=== PATIENT | male | born 1985 | race Caucasian/White ===

== ENCOUNTER 2018-02-18 07:08 | Day surgery (SDC) | payer SELFPAY ==
[2018-02-18] MEDS ORDERED: Sodium Chloride 0.9% 1,000 ML IV ONE (07:35)
[2018-02-18] MEDS ORDERED: Ketorolac 30 MG/ML SDV IVPUSH ONE (07:35)
--- NOTE | 2018-02-18 07:52 | EDM.PDOC ---
ED HPI GENERAL MEDICAL PROBLEM - General Chief Complaint: Abdominal Pain Stated Complaint: PAIN ON LEFT SIDE Time Seen by Provider: 02/18/18 07:47 - History of Present Illness INITIAL COMMENTS - FREE TEXT/NARRATIVE: HISTORY AND PHYSICAL: History of present illness: Patient 32-year-old white male presented concern of right lower quadrant abdominal pain 2 days this been worse over the last 24 hours she's had nausea with no vomiting denies fever chills trauma urinary symptoms or other concern Review of systems: As per history of present illness and below otherwise all systems reviewed and negative. Past medical history: As per history of present illness and as reviewed below otherwise noncontributory. Surgical history: As per history of present illness and as reviewed below otherwise noncontributory. Social history: No reported history of drug or alcohol abuse. Family history: As per history of present illness and as reviewed below otherwise noncontributory. Physical exam: HEENT: Atraumatic, normocephalic, pupils reactive, negative for conjunctival pallor or scleral icterus, mucous membranes moist, throat clear, neck supple, nontender, trachea midline. Lungs: Clear to auscultation, breath sounds equal bilaterally, chest nontender. Heart: S1S2, regular, negative for clicks, rubs, or JVD. Abdomen: Soft, nondistended, right lower quadrant tenderness to deep palpation with guarding no rebound. Negative for masses or hepatosplenomegaly. Negative for costovertebral tenderness. Pelvis: Stable nontender. Genitourinary: Deferred. Rectal: Deferred. Extremities: Atraumatic, negative for cords or calf pain. Neurovascular unremarkable. Neuro: Awake, alert, oriented. Cranial nerves II through XII unremarkable. Cerebellum unremarkable. Motor and sensory unremarkable throughout. Exam nonfocal. Diagnostics: CBC CMP UA CT abdomen and pelvis Therapeutics: Saline 1 L bolus Toradol 30 mg IV Impression: #1 acute right lower abdominal pain Definitive disposition and diagnosis as appropriate pending reevaluation and review of above. Right Lower Abdomen Pain Score (Numeric/FACES): 8 - Related Data Allergies Allergy/AdvReac Type Severity Reaction Status Date / Time No Known Allergies Allergy Verified 02/18/18 07:14 Home Meds: Home Meds . [No Known Home Meds] 02/18/18 [History] Past Medical History - Past Health History Medical/Surgical History: Denies Medical/Surgical History - Infectious Disease History Infectious Disease History: Reports: None Social & Family History - Family History Family Medical History: Noncontributory - Tobacco Use Smoking Status *Q: Current Every Day Smoker Years of Tobacco use: 10 Packs/Tins Daily: 0.2 - Caffeine Use Caffeine Use: Reports: Energy Drinks - Alcohol Use Days Per Week of Alcohol Use: 1 Number of Drinks Per Day: 2 Total Drinks Per Week: 2 - Recreational Drug Use Recreational Drug Use: No ED ROS GENERAL - Review of Systems Review Of Systems: ROS reveals no pertinent complaints other than HPI. ED EXAM, GENERAL - Physical Exam Exam: See Below Course - Vital Signs Last Recorded V/S: Last Vital Signs Temp 36.7 C 02/18/18 07:14 Pulse 98 02/18/18 08:43 Resp 16 02/18/18 08:43 BP 149/96 H 02/18/18 08:43 Pulse Ox 97 02/18/18 08:43 - Orders/Labs/Meds Orders: Active Orders 24 hr Category Date Time Status Abdomen Pelvis wo Cont [CT] Stat Exams 02/18/18 07:30 Taken CULTURE URINE [RM] Stat Lab 02/18/18 07:30 Received UA W/MICROSCOPIC [URIN] Stat Lab 02/18/18 07:30 Ordered Labs: Laboratory Tests 02/18/18 02/18/18 02/18/18 Range/Units 07:30 07:50 07:50 WBC 10.04 (4.0-11.0) K/uL RBC 5.53 (4.50-5.90) M/uL Hgb 17.1 H (13.0-17.0) g/dL Hct 49.4 (38.0-50.0) % MCV 89.3 (80.0-98.0) fL MCH 30.9 (27.0-32.0) pg MCHC 34.6 (31.0-37.0) g/dL RDW Std Deviation 42.2 (28.0-62.0) fl RDW Coeff of Winifred 13 (11.0-15.0) % Plt Count 192 (150-400) K/uL MPV 11.00 (7.40-12.00) fL Neut % (Auto) 67.0 (48.0-80.0) % Lymph % (Auto) 24.4 (16.0-40.0) % [place] % (Auto) 6.8 (0.0-15.0) % Eos % (Auto) 1.4 (0.0-7.0) % Baso % (Auto) 0.4 (0.0-1.5) % Neut # (Auto) 6.7 H (1.4-5.7) K/uL Lymph # (Auto) 2.5 H (0.6-2.4) K/uL [place] # (Auto) 0.7 (0.0-0.8) K/uL Eos # (Auto) 0.1 (0.0-0.7) K/uL Baso # (Auto) 0.0 (0.0-0.1) K/uL Nucleated RBC % 0.0 /100WBC Nucleated RBCs # 0 K/uL Sodium 138 (136-148) mmol/L Potassium 4.3 (3.5-5.1) mmol/L Chloride 107 (98-107) mmol/L Carbon Dioxide 25.9 (21.0-32.0) mmol/L BUN 10 (7.0-18.0) mg/dL Creatinine 1.0 (0.8-1.3) mg/dL Est Cr Clr Drug Dosing 97.31 mL/min Estimated GFR (MDRD) > 60.0 ml/min Glucose 111 H (74-106) mg/dL Calcium 9.0 (8.5-10.1) mg/dL Total Bilirubin 0.5 (0.2-1.0) mg/dL AST 24 (15-37) IU/L ALT 53 (14-63) IU/L Alkaline Phosphatase 61 (46-116) U/L Total Protein 7.9 (6.4-8.2) g/dL Albumin 3.7 (3.4-5.0) g/dL Globulin 4.2 H (2.0-3.5) g/dL Albumin/Globulin Ratio 0.9 L (1.3-2.8) Urine Color YELLOW Urine Appearance CLEAR Urine pH 6.0 (5.0-8.0) Ur Specific [place] 1.025 (1.001-1.035) Urine Protein NEGATIVE (NEGATIVE) mg/dL Urine Glucose (UA) NEGATIVE (NEGATIVE) mg/dL Urine Ketones NEGATIVE (NEGATIVE) mg/dL Urine Occult Blood NEGATIVE (NEGATIVE) Urine Nitrite NEGATIVE (NEGATIVE) Urine Bilirubin NEGATIVE (NEGATIVE) Urine Urobilinogen 0.2 (<2.0) EU/dL Ur Leukocyte Esterase NEGATIVE (NEGATIVE) Urine RBC 0-1 (0-2/HPF) Urine WBC 0-1 (0-5/HPF) Ur Epithelial Cells RARE (NONE-FEW) Urine Bacteria RARE (NEGATIVE) Urine Mucus LIGHT (NONE-MOD) Meds: Medications Discontinued Medications Generic Name Dose Route Start Last Admin Trade Name Abhi PRN Reason Stop Dose Admin Sodium Chloride 1,000 mls @ 999 mls/hr 02/18/18 07:35 02/18/18 07:53 Normal Saline IV 02/18/18 08:35 999 mls/hr .Bolus ONE Administration Ketorolac Tromethamine 30 mg 02/18/18 07:35 02/18/18 07:53 Toradol IVPUSH 02/18/18 07:36 30 mg ONETIME ONE Administration Departure - Departure Time of Disposition: 09:21 Disposition: Refer to Observation Condition: Good Clinical Impression: Abdominal pain, Appendicitis - Discharge Information Referrals: PCP,None [Primary Care Provider] - Forms: ED Department Discharge - My Orders Last 24 Hours: My Active Orders 02/18/18 07:30 Abdomen Pelvis wo Cont [CT] Stat CULTURE URINE [RM] Stat UA W/MICROSCOPIC [URIN] Stat - Assessment/Plan Last 24 Hours: My Active Orders 02/18/18 07:30 Abdomen Pelvis wo Cont [CT] Stat CULTURE URINE [RM] Stat UA W/MICROSCOPIC [URIN] Stat
[2018-02-18 08:24] LABS: CHLORIDE,CL 107 mmol/L (98-107); SODIUM,NA 138 mmol/L (136-148)
[2018-02-18] MEDS ORDERED: cefOXitin 2 GM in Premix Bag 1 BAG IV ONE (09:36)
--- NOTE | 2018-02-18 09:44 | PCM.SN ---
- Free Text/Narrative Note: abd pain, ct > acute appendicitis, to surgery; rb dw pt re bleeding, infection, damage to nearby organ, abd abscess, postop course; [id number]
[2018-02-18] MEDS ORDERED: Lactated Ringers 1,000 ML IV SCH (09:45)
[2018-02-18] MEDS ORDERED: Bupivacaine 25%/EPINEPHrine/PF 30 ML ONE (10:06)
[2018-02-18] MEDS ORDERED: fentaNYL 250 MCG/5 ML SDV ONE (10:22)
[2018-02-18] MEDS ORDERED: Propofol 200 MG/20 ML SDV ONE (10:22)
[2018-02-18] MEDS ORDERED: Midazolam 1 MG/ML 2 ML SDV ONE (10:22)
[2018-02-18] MEDS ORDERED: Rocuronium 10 MG/ML 10 ML Syringe ONE (10:23)
[2018-02-18] MEDS ORDERED: Succinylcholine 200 MG/10 ML MDV ONE (10:23)
[2018-02-18] MEDS ORDERED: Ondansetron 4 MG/2 ML SDV ONE (10:24)
[2018-02-18] MEDS ORDERED: Neostigmine Methylsulfate 1 MG/ML 5 ML Syringe ONE (10:24)
[2018-02-18] MEDS ORDERED: Glycopyrrolate 0.2 MG/ML SDV ONE (10:24)
[2018-02-18] MEDS ORDERED: Dexamethasone 4 MG/ML 5 ML MDV ONE (10:24)
--- NOTE | 2018-02-18 11:04 | PCM.PREANE ---
Preanesthetic Assessment - Anesthesia/Transfusion/Family Hx Anesthesia History: Prior Anesthesia Without Reaction (Jew[place] teeth) Family History of Anesthesia Reaction: No Transfusion History: No Prior Transfusion(s) - Review of Systems General: No Symptoms Pulmonary: No Symptoms Cardiovascular: No Symptoms Gastrointestinal: No Symptoms Neurological: No Symptoms Other: Reports: None (Denies any medical problems) - Physical Assessment O2 Sat by Pulse Oximetry: 97 Respiratory Rate: 16 Vital Signs: Last Vital Signs Temp 36.7 C 02/18/18 07:14 Pulse 98 02/18/18 08:43 Resp 16 02/18/18 08:43 BP 149/96 H 02/18/18 08:43 Pulse Ox 97 02/18/18 08:43 Height: 1.7 m Weight: 99.79 kg ASA Class: 2E Mental Status: Alert & Oriented x3 Airway Class: Mallampati = 2 (opens very wide) Dentition: Reports: Normal Dentition Thyro-Mental Finger Breadths: 3 Mouth Opening Finger Breadths: 3 ROM/Head Extension: Full Lungs: Clear to Auscultation Cardiovascular: Regular Rate - Lab Values: Laboratory Last Values WBC 10.04 K/uL (4.0-11.0) 02/18/18 07:50 RBC 5.53 M/uL (4.50-5.90) 02/18/18 07:50 Hgb 17.1 g/dL (13.0-17.0) H 02/18/18 07:50 Hct 49.4 % (38.0-50.0) 02/18/18 07:50 MCV 89.3 fL (80.0-98.0) 02/18/18 07:50 MCH 30.9 pg (27.0-32.0) 02/18/18 07:50 MCHC 34.6 g/dL (31.0-37.0) 02/18/18 07:50 RDW Std Deviation 42.2 fl (28.0-62.0) 02/18/18 07:50 RDW Coeff of Winifred 13 % (11.0-15.0) 02/18/18 07:50 Plt Count 192 K/uL (150-400) 02/18/18 07:50 MPV 11.00 fL (7.40-12.00) 02/18/18 07:50 Neut % (Auto) 67.0 % (48.0-80.0) 02/18/18 07:50 Lymph % (Auto) 24.4 % (16.0-40.0) 02/18/18 07:50 [place] % (Auto) 6.8 % (0.0-15.0) 02/18/18 07:50 Eos % (Auto) 1.4 % (0.0-7.0) 02/18/18 07:50 Baso % (Auto) 0.4 % (0.0-1.5) 02/18/18 07:50 Neut # (Auto) 6.7 K/uL (1.4-5.7) H 02/18/18 07:50 Lymph # (Auto) 2.5 K/uL (0.6-2.4) H 02/18/18 07:50 [place] # (Auto) 0.7 K/uL (0.0-0.8) 02/18/18 07:50 Eos # (Auto) 0.1 K/uL (0.0-0.7) 02/18/18 07:50 Baso # (Auto) 0.0 K/uL (0.0-0.1) 02/18/18 07:50 Nucleated RBC % 0.0 /100WBC 02/18/18 07:50 Nucleated RBCs # 0 K/uL 02/18/18 07:50 Sodium 138 mmol/L (136-148) 02/18/18 07:50 Potassium 4.3 mmol/L (3.5-5.1) 02/18/18 07:50 Chloride 107 mmol/L (98-107) 02/18/18 07:50 Carbon Dioxide 25.9 mmol/L (21.0-32.0) 02/18/18 07:50 BUN 10 mg/dL (7.0-18.0) 02/18/18 07:50 Creatinine 1.0 mg/dL (0.8-1.3) 02/18/18 07:50 Est Cr Clr Drug Dosing 97.31 mL/min 02/18/18 07:50 Estimated GFR (MDRD) > 60.0 ml/min 02/18/18 07:50 Glucose 111 mg/dL (74-106) H 02/18/18 07:50 Calcium 9.0 mg/dL (8.5-10.1) 02/18/18 07:50 Total Bilirubin 0.5 mg/dL (0.2-1.0) 02/18/18 07:50 AST 24 IU/L (15-37) 02/18/18 07:50 ALT 53 IU/L (14-63) 02/18/18 07:50 Alkaline Phosphatase 61 U/L (46-116) 02/18/18 07:50 Total Protein 7.9 g/dL (6.4-8.2) 02/18/18 07:50 Albumin 3.7 g/dL (3.4-5.0) 02/18/18 07:50 Globulin 4.2 g/dL (2.0-3.5) H 02/18/18 07:50 Albumin/Globulin Ratio 0.9 (1.3-2.8) L 02/18/18 07:50 Urine Color YELLOW 02/18/18 07:30 Urine Appearance CLEAR 02/18/18 07:30 Urine pH 6.0 (5.0-8.0) 02/18/18 07:30 Ur Specific [place] 1.025 (1.001-1.035) 02/18/18 07:30 Urine Protein NEGATIVE mg/dL (NEGATIVE) 02/18/18 07:30 Urine Glucose (UA) NEGATIVE mg/dL (NEGATIVE) 02/18/18 07:30 Urine Ketones NEGATIVE mg/dL (NEGATIVE) 02/18/18 07:30 Urine Occult Blood NEGATIVE (NEGATIVE) 02/18/18 07:30 Urine Nitrite NEGATIVE (NEGATIVE) 02/18/18 07:30 Urine Bilirubin NEGATIVE (NEGATIVE) 02/18/18 07:30 Urine Urobilinogen 0.2 EU/dL (<2.0) 02/18/18 07:30 Ur Leukocyte Esterase NEGATIVE (NEGATIVE) 02/18/18 07:30 Urine RBC 0-1 (0-2/HPF) 02/18/18 07:30 Urine WBC 0-1 (0-5/HPF) 02/18/18 07:30 Ur Epithelial Cells RARE (NONE-FEW) 02/18/18 07:30 Urine Bacteria RARE (NEGATIVE) 02/18/18 07:30 Urine Mucus LIGHT (NONE-MOD) 02/18/18 07:30 - Allergies Allergies/Adverse Reactions: Allergies Allergy/AdvReac Type Severity Reaction Status Date / Time No Known Allergies Allergy Verified 02/18/18 07:14 - Acknowledgements Anesthesia Type Planned: General Anesthesia (RSI) Pt an Appropriate Candidate for the Planned Anesthesia: Yes Alternatives and Risks of Anesthesia Discussed w Pt/Guardian: Yes Pt/Guardian Understands and Agrees with Anesthesia Plan: Yes PreAnesthesia Questionnaire - Past Health History Medical/Surgical History: Denies Medical/Surgical History - Infectious Disease History Infectious Disease History: Reports: None - SUBSTANCE USE Smoking Status *Q: Current Every Day Smoker Tobacco Use Within Last Twelve Months: Cigarettes Days Per Week of Alcohol Use: 1 Number of Drinks Per Day: 2 Total Drinks Per Week: 2 Recreational Drug Use History: No - HOME MEDS Home Medications: Home Meds . [No Known Home Meds] 02/18/18 [History] - CURRENT (IN HOUSE) MEDS Current Meds: Current Medications Lactated Ringer's (Ringers, Lactated) 1,000 mls @ 150 mls/hr IV ASDIRECTED [facility] Last Admin: 02/18/18 09:50 Dose: 150 mls/hr Discontinued Medications Dexamethasone (Dexamethasone) Confirm Administered Dose 20 mg .ROUTE .STK-MED ONE Stop: 02/18/18 10:25 Fentanyl (Sublimaze) Confirm Administered Dose 250 mcg .ROUTE .STK-MED ONE Stop: 02/18/18 10:23 Glycopyrrolate (Robinul) Confirm Administered Dose 0.4 mg .ROUTE .STK-MED ONE Stop: 02/18/18 10:25 Sodium Chloride (Normal Saline) 1,000 mls @ 999 mls/hr IV .Bolus ONE Stop: 02/18/18 08:35 Last Admin: 02/18/18 07:53 Dose: 999 mls/hr Cefoxitin Sodium 2 gm/ Premix 50 mls @ 100 mls/hr IV ONETIME ONE Stop: 02/18/18 10:05 Last Admin: 02/18/18 09:51 Dose: 100 mls/hr Bupivacaine HCl/Epinephrine Bitart (Sensorc Mpf 0.25%-Epi 1:[id number]) Confirm Administered Dose 30 mls @ as directed .ROUTE .STK-MED ONE Stop: 02/18/18 10:07 Lidocaine HCl (Xylocaine-Mpf 1%) Confirm Administered Dose 5 mls @ as directed .ROUTE .STK-MED ONE Stop: 02/18/18 10:24 Ketorolac Tromethamine (Toradol) 30 mg IVPUSH ONETIME ONE Stop: 02/18/18 07:36 Last Admin: 02/18/18 07:53 Dose: 30 mg Midazolam HCl (Versed 1 Mg/Ml) Confirm Administered Dose 2 mg .ROUTE .ST-MED ONE Stop: 02/18/18 10:23 Neostigmine Methylsulfate (Neostigmine) Confirm Administered Dose 5 mg .ROUTE .ST-MED ONE Stop: 02/18/18 10:25 Ondansetron HCl (Zofran) Confirm Administered Dose 4 mg .ROUTE .[facility]-MED ONE Stop: 02/18/18 10:25 Propofol (Diprivan 20 Ml) Confirm Administered Dose 200 mg .ROUTE .STK-MED ONE Stop: 02/18/18 10:23 Rocuronium [place] (Zemuron) Confirm Administered Dose 100 mg .ROUTE .STK-MED ONE Stop: 02/18/18 10:24 Succinylcholine Chloride (Quelicin) Confirm Administered Dose 200 mg .ROUTE .ST -MED ONE Stop: 02/18/18 10:24
[2018-02-18] MEDS ORDERED: fentaNYL 100 MCG/2 ML SDV IVPUSH PRN (11:07)
[2018-02-18] MEDS ORDERED: Octyl 2-Cyanoacrylate 1 Tube ONE (11:57)
[2018-02-18] MEDS ORDERED: HYDROmorphone 2 MG/ML SDV ONE (12:01)
--- NOTE | 2018-02-18 12:48 | PCM.POSTAN ---
POST ANESTHESIA ASSESSMENT - MENTAL STATUS Mental Status: Alert, Oriented - RESPIRATORY Respiratory Status: Respiratory Rate WNL, Airway Patent, O2 Saturation Stable - CARDIOVASCULAR CV Status: Pulse Rate WNL, Blood Pressure Stable - GASTROINTESTINAL GI Status: No Symptoms - PAIN Pain Score: 4 - POST OP HYDRATION Hydration Status: Adequate & Stable
--- NOTE | 2018-02-18 12:58 | PCM.OPNOTE ---
- General Post-Op/Procedure Note Date of Surgery/Procedure: 02/18/18 Operative Procedure(s): lap appendectomy Findings: appendix was hyperemic, indurated, hardened like a thelma, and distended tip; [id number] Pre Op Diagnosis: acute appendicitis Post-Op Diagnosis: Same Anesthesia Technique: General ET Tube Primary Surgeon: Akira Lyn Pathology: sent Complications: None Condition: Stable Free Text/Narrative:: Intake & Output 02/17/18 02/18/18 02/18/18 22:59 06:59 14:59 Output Total 250 Balance -250
[2018-02-18] MEDS ORDERED: Acetaminophen/oxyCODONE 325-5 MG Tab PO PRN (13:01)
[2018-02-18] MEDS ORDERED: Ondansetron 4 MG/2 ML SDV IVPUSH PRN (13:02)
--- NOTE | 2018-02-18 13:23 | PCM48HPAN ---
Post Anesthesia Note - EVALUATION WITHIN 48HRS OF ANESTHETIC Vital Signs in Normal Range: Yes Patient Participated in Evaluation: Yes Respiratory Function Stable: Yes Airway Patent: Yes Cardiovascular Function Stable: Yes Hydration Status Stable: Yes (ice chips) Pain Control Satisfactory: Yes Nausea and Vomiting Control Satisfactory: Yes Mental Status Recovered: Yes Resp Rate: 13
--- NOTE | 2018-02-18 13:44 | OR ---
SURGEON: Akira Lyn MD DATE OF PROCEDURE: 02/18/2018 PREOPERATIVE DIAGNOSIS: Acute appendicitis. POSTOPERATIVE DIAGNOSIS: Acute appendicitis. PROCEDURE PERFORMED: Laparoscopic appendectomy. COMPLICATIONS: None. FINDINGS: Appendix, was hyperemic and hardened and indurated with very distended tip. No gross perforation observed. PROCEDURE IN DETAIL: The patient was taken to the operating room and placed in the supine position. Following induction of general endotracheal anesthesia, the patient's abdomen was prepped and draped in the sterile fashion. A time-out has been called. The patient was identified. The procedure was identified. The antibiotics were identified. The procedure then proceeded. The abdomen was prepped and draped in a standard fashion. After assessment of appropriate landmarks, a 12 millimeter trocar was inserted supraumbilically using Optiview and pneumoperitoneum was then achieved. This was followed with placement of 5 millimeter port in the right upper quadrant and another 5 millimeter port infraumbilically. The camera was inserted supraumbilical site and two laparoscopic Convoy retractors were then inserted through the other two sites. Following the cecum, the appendix was located. The appendix was then lifted up, and using a GI stapler the appendix was amputated at the base. And using the GI stapler, the mesoappendix was then amputated. The appendix was retrieved by an endoscopic bag and sent for pathologist. This was then followed by re-insertion of the camera to examine the staple line, and hemostasis. The trocars were then removed. The umbilical site was closed with 2-0 Vicryl deep stitch and 4 -0 Vicryl and Dermabond; the other 2 5 mm port sites were closed with 4-0 Vicryl and Dermabond. The patient was then awakened, extubated, and transferred to the recovery room in hemodynamically stable condition. Prior to closing, sponge count and instrument count was correct. Dr. Lyn was present throughout the whole procedure. As always, thank you for the kind referral. GRACE / RUSLAN /[id number]
--- NOTE | 2018-02-19 13:04 | CT ---
EXAM DATE: 02/18/18 PATIENT'S AGE: 32 Patient: VASILIY OWENS Facility: [place], [place] Site . Site : 1985 Study: CT Abdomen/Pelvis wo cont [id number]/2/2018 8:12:17 AM Ordering Physician: Doctor Barnes Final Report: INDICATION: RIGHT LOWER QUAD PAIN FOR 2 DAYS TECHNIQUE: Noncontrast CT scan of the abdomen and pelvis. FINDINGS: The lung bases are unremarkable. Diffuse fatty infiltration of the liver. No focal abnormalities identified in the visualized portions of the liver, spleen, pancreas, adrenal glands, and kidneys. No hydronephrosis. No uroliths. The appendix is mildly dilated measuring 9 mm but there are no periappendiceal inflammatory changes. The remainder of the GI tract is incompletely distended but shows no gross abnormalities. The stomach and GE junction are not well assessed. No retroperitoneal, pelvic sidewall, or mesenteric adenopathy. IMPRESSION: 1. Mildly dilated appendix, however, there are no periappendiceal inflammatory changes making acute appendicitis unlikely. Recommend close clinical follow-up. 2. Diffuse fatty infiltration of the liver. Dictated by Minh Mac MD @ 02/18/2018 8:33:05 AM Dictated by: Minh Mac MD @ 02/18/2018 08:33:17 (Electronic Signature) Report Signed by Proxy. MARIAJOSE
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
== END 2018-02-18 15:19 | disposition home or self-care (01) ==
LOC: MW.ED 07:08 → MW.SDS 09:33 → MW.MS 12:53 → MW.SDS 15:19
PROVIDERS: ATTEND Surgery
DX: K35.80 Unspecified acute appendicitis (principal); F17.210 Nicotine dependence, cigarettes, uncomplicated; E66.9 Obesity, unspecified; Z68.35 Body mass index [BMI] 35.0-35.9, adult
CPT/HCPCS: 36415; 44970; 74176; 80053; 81001; 85025; 87086; 96361; 96365; 96375; 99285; A9270; J0330; J0694; J1100; J1170; J1885; J2250; J2405; J2704; J3010; J3490; J7040; J7120; 88304; 99283